=== PATIENT | male | born 1970 | race Caucasian/White ===

== ENCOUNTER 2019-12-18 22:03 | Emergency (ER) | payer OTHER ==
[~2019-12-18] VITALS: Ht 182.9 cm; Wt 124.3 kg
== END 2019-12-19 01:18 | disposition home or self-care (01) ==
LOC: ER 22:03
DX: S93.401A Sprain of unspecified ligament of right ankle, initial encounter (principal); X58.XXXA Exposure to other specified factors, initial encounter
CPT/HCPCS: 73610; 99283-25

== ENCOUNTER → 2021-10-22 | Emergency (ER) | payer OTHER ==
[~2021-10-22] VITALS: Ht 182.9 cm; Wt 117.9 kg
== END ==
LOC: ER 09:59
DX: R60.0 Localized edema (principal); I89.0 Lymphedema, not elsewhere classified; Z98.890 Other specified postprocedural states
CPT/HCPCS: 93971